=== PATIENT | female | born 1985 | race Caucasian/White ===

== ENCOUNTER → 2017-05-18 | Outpatient (REF) | LOC: M SMT 11:41 | DX: Z02.9 Encounter for administrative examinations, unspecified (principal) ==

== ENCOUNTER 2022-02-20 08:56 | Day surgery (SDC) | payer OTHER ==
[~2022-02-20] VITALS: Ht 160 cm; Wt 70.3 kg
[~2022-02-20 08:56] MED LIST: ADDE1TAB14 PO; FLUT15.820; LISI10TA22 PO; LISI5TAB11 PO; LORA-674 PO; METF-838 PO; SERO1TAB3 PO; TIZA1TAB12 PO; ZOLO25TA PO
[2022-02-20] MEDS ORDERED: LR 1,000 ML IV SCH ×2 (09:50→14:50)
[2022-02-20] MEDS ORDERED: LIDOCAINE W/EPINEPHRINE 1% 20ML VIAL As Ordered ONE (10:04)
[2022-02-20] MEDS ORDERED: ACETAMINOPHEN 1000MG 100ML IV BAG As Ordered ONE (10:28)
[2022-02-20] MEDS ORDERED: SUGAMMADEX SODIUM 500 MG/5 ML VIAL (BRIDION) As Ordered ONE (10:28)
[2022-02-20] MEDS ORDERED: ROCURONIUM BROMIDE 50 MG/5 ML VIAL As Ordered ONE (10:28)
[2022-02-20] MEDS ORDERED: dexameTHASONE 4 MG/ML 1ML VIAL (J1100 PER 1MG) As Ordered ONE (10:28)
[2022-02-20] MEDS ORDERED: LIDOCAINE 2% 100MG/5ML SDV (FOR ANES.) As Ordered ONE (10:28)
[2022-02-20] MEDS ORDERED: fentaNYL 100 MCG/2 ML INJECTION As Ordered ONE (10:28)
[2022-02-20] MEDS ORDERED: propofoL 200 MG/20 ML VIAL As Ordered ONE (10:28)
[2022-02-20] MEDS ORDERED: MIDAZOLAM INJ 2MG/2ML VIAL (J2250 PER 1MG) As Ordered ONE (10:28)
[2022-02-20] MEDS ORDERED: ONDANSETRON 4MG 2ML VIAL As Ordered ONE (10:28)
[2022-02-20] MEDS ORDERED: KETOROLAC 60MG 2ML VIAL As Ordered ONE (10:28)
[2022-02-20] MEDS ORDERED: ePHEDrine SULFATE 25 MG/5 ML(5MG/ML) SYRINGE As Ordered ONE (10:35)
[2022-02-20] MEDS ORDERED: ONDANSETRON 4MG 2ML VIAL IV PRN (11:00)
[2022-02-20] MEDS ORDERED: oxyCODONE 5MG TAB PO PRN (11:00)
[2022-02-20] MEDS ORDERED: fentaNYL 100 MCG/2 ML INJECTION IV PRN (11:00)
[2022-02-20 13:15] VITALS: BP 143/84
== END 2022-02-20 13:30 | disposition home or self-care (01) ==
LOC: M SDC 08:56
PROVIDERS: ATTEND Dentist Oral and Maxillofacial Surgery
DX: K02.9 Dental caries, unspecified (principal); E11.9 Type 2 diabetes mellitus without complications; I10 Essential (primary) hypertension; F17.210 Nicotine dependence, cigarettes, uncomplicated; F90.9 Attention-deficit hyperactivity disorder, unspecified type; F41.9 Anxiety disorder, unspecified; F32.A Depression, unspecified; Z91.040 Latex allergy status; Z79.899 Other long term (current) drug therapy
CPT/HCPCS: 81025; 88300; D7210; D9223; J0131; J1100; J1885; J2250; J2405; J3010

== ENCOUNTER → 2024-08-15 | Outpatient (CLI) | payer OTHER ==
[~2024-08-15] MED LIST changes: +LORA-1041 PO; -LORA-674 PO
== END ==
LOC: M SLEEP 08:39
DX: R56.9 Unspecified convulsions (principal)